=== PATIENT | male | born 1995 | race African-American/Black ===

== ENCOUNTER 2018-01-06 00:48 | Emergency (ER) | payer OTHER, SELFPAY ==
[2018-01-06] MEDS ORDERED: diphenhydrAMINE 50 MG/ML VIAL ONE (00:57)
[2018-01-06] MEDS ORDERED: methylPREDNISolone Sod Succ/PF 125 MG/2 ML VIAL ONE (00:57)
== END 2018-01-06 01:56 | disposition home or self-care (01) ==
LOC: NAV ERS 00:48
DX: T78.40XA Allergy, unspecified, initial encounter (principal); F17.210 Nicotine dependence, cigarettes, uncomplicated
CPT/HCPCS: 96374; 96375; J1200; J2930

== ENCOUNTER 2018-01-09 19:24 | Emergency (ER) | payer SELFPAY | END 2018-01-09 20:04 | disposition home or self-care (01) | LOC: NAV ERS 19:24 | DX: E86.0 Dehydration (principal); F41.9 Anxiety disorder, unspecified; F17.210 Nicotine dependence, cigarettes, uncomplicated | CPT/HCPCS: 36416; 93005 ==